=== PATIENT | male | born 1955 | race African-American/Black ===

== ENCOUNTER 2019-07-16 08:43 | Outpatient (CLI) | payer OTHER | END 2019-07-16 21:36 | disposition home or self-care (01) | LOC: US 08:43 | DX: N50.811 Right testicular pain (principal) ==

== ENCOUNTER 2020-02-28 14:37 | Inpatient (IN) | payer OTHER ==
[~2020-02-28] VITALS: Ht 188 cm; Wt 94.6 kg
[2020-02-28] VITALS (18 sets, daily range): BP systolic 100–190; BP diastolic 61–96; TEMP 98–103; Ht 188 cm; Wt 94.6 kg
[2020-02-28 15:18] LABS: PLATELET COUNT 521 K/uL (142-355)
[2020-02-28 15:24] LABS: POTASSIUM 3.5 mmol/L (3.6-5.2)
[2020-02-29] VITALS (24 sets, daily range): BP systolic 100–136; BP diastolic 59–97; TEMP 97.3–97.9
[2020-02-29 05:23] LABS: POTASSIUM 3.8 mmol/L (3.6-5.2)
[2020-02-29 05:58] LABS: PLATELET COUNT 298 K/uL (142-355)
[2020-03-01] VITALS (25 sets, daily range): BP systolic 88–182; BP diastolic 56–105
[2020-03-01 06:25] LABS: POTASSIUM 3.6 mmol/L (3.6-5.2)
[2020-03-01 06:32] LABS: PLATELET COUNT 475 K/uL (142-355)
== END 2020-03-01 18:36 | disposition short-term general hospital (02) | DRG 177 ==
LOC: ED 14:37 → ICU 16:00
PROVIDERS: Internal Medicine Endocrinology, Diabetes & Metabolism; ADMIT Emergency Medicine Emergency Medical Services
DX: U07.1 COVID-19 (principal); J96.01 Acute respiratory failure with hypoxia; J18.8 Other pneumonia, unspecified organism; A41.89 Other specified sepsis; E87.1 Hypo-osmolality and hyponatremia; N17.9 Acute kidney failure, unspecified; E87.6 Hypokalemia; R79.89 Other specified abnormal findings of blood chemistry
CPT/HCPCS: 31500; 36415; 36600; 80053; 81000; 82805; 83605; 83880; 85007; 85027; 87040; 87502; 87635; 94003; 94664; 94668; 94760; 96360; 96361; 96365; 96375; 99285; J0330; J0456; J0696; J1100; J1650; J1815; J2250; J2270; J2543; J2704; J3370; J3490; U0002

== ENCOUNTER 2020-04-23 09:07 | Outpatient (CLI) | payer OTHER ==
[2020-04-23 09:43] LABS: PARTIAL THROMBOPLASTIN TIME 25.4 SECONDS (24.5-33.6)
[2020-04-23 10:08] LABS: PLATELET COUNT 400 K/uL (142-355)
[2020-04-23 10:39] LABS: POTASSIUM 4.2 mmol/L (3.6-5.2)
== END 2020-04-23 23:01 | disposition home or self-care (01) ==
LOC: LABW 09:07
PROVIDERS: Internal Medicine
DX: D69.2 Other nonthrombocytopenic purpura (principal); R82.998 Other abnormal findings in urine
CPT/HCPCS: 80053; 81000; 85027; 85610; 85730; 87088

== ENCOUNTER 2021-01-12 09:18 | Day surgery (SDC) | payer OTHER ==
[2021-01-07 09:37] LABS: PLATELET COUNT 310 K/uL (142-355)
[~2021-01-12] VITALS: Ht 30.5 cm; Wt 0.5 kg
== END 2021-01-12 13:05 | disposition home or self-care (01) ==
LOC: OR 09:18
PROVIDERS: ATTEND Internal Medicine Gastroenterology
PROC: 0DBN8ZZ Excision of Sigmoid Colon, Via Natural or Artificial Opening Endoscopic (ICD-10-PCS; principal; 2021-01-12)
PROC: 0DBM8ZZ Excision of Descending Colon, Via Natural or Artificial Opening Endoscopic (ICD-10-PCS; 2021-01-12)
DX: D12.4 Benign neoplasm of descending colon (principal); D12.5 Benign neoplasm of sigmoid colon; K57.30 Diverticulosis of large intestine without perforation or abscess without bleeding; K64.8 Other hemorrhoids; Z12.11 Encounter for screening for malignant neoplasm of colon; Z20.822 Contact with and (suspected) exposure to COVID-19
CPT/HCPCS: 80053; 85027; 87635; J2001; J2704; U0003

== ENCOUNTER 2022-01-10 16:25 | Outpatient (CLI) | payer OTHER ==
[2022-01-10 18:03] LABS: POTASSIUM 4.5 mmol/L (3.6-5.2)
[2022-01-10 18:39] LABS: PLATELET COUNT 327 K/uL (142-355)
== END 2022-01-10 19:47 | disposition home or self-care (01) ==
LOC: LAB 16:25
PROVIDERS: ATTEND Internal Medicine
DX: Z00.00 Encounter for general adult medical examination without abnormal findings (principal); Z12.5 Encounter for screening for malignant neoplasm of prostate; Z79.899 Other long term (current) drug therapy
CPT/HCPCS: 80053; 80061; 81000; 84153; 84439; 84443; 85027